=== PATIENT | male | born 1960 | race Two or more races ===

== ENCOUNTER 2020-10-07 19:02 | Emergency (ER) | payer SELFPAY ==
[~2020-10-07] VITALS: Ht 157.5 cm; Wt 83.9 kg
[2020-10-07 19:02] VITALS: BP 128/74
[2020-10-07] MEDS ORDERED: IBUPROFEN 800 MG TAB PO ONE (21:45)
== END 2020-10-07 21:59 | disposition home or self-care (01) ==
LOC: ER 19:05
DX: S96.912A Strain of unspecified muscle and tendon at ankle and foot level, left foot, initial encounter (principal); M51.9 Unspecified thoracic, thoracolumbar and lumbosacral intervertebral disc disorder; W01.0XXA Fall on same level from slipping, tripping and stumbling without subsequent striking against object, initial encounter; Y93.89 Activity, other specified; Y92.89 Other specified places as the place of occurrence of the external cause; Y99.8 Other external cause status
CPT/HCPCS: 72131; 73060; 73562; 73600

== ENCOUNTER 2023-10-24 16:43 | Inpatient (IN) | payer MEDICAID ==
[~2023-10-24] VITALS: Ht 165.1 cm; Wt 82.9 kg
[2023-10-24 17:21] LABS: Basophils # (auto) 0.1 10 ^3/uL (0-0.2); Basophils % (auto) 0.8 % (0.0-2.0); Eosinophils # (auto) 0.1 10 ^3/uL (0-0.8); Eosinophils % (auto) 1.4 % (0.0-7.0); Hematocrit 44.1 % (41.0-53.0); Hemoglobin 15.2 g/dL (13.5-17.5); Lymphocytes # (auto) 1.4 10 ^3/uL (0.4-5.4); Lymphocytes % (auto) 14.7 % (10.0-50.0); Mean Corpuscular Hemoglobin 30.8 pg (28.0-32.0); Mean Corpuscular Hgb Conc. 34.4 g/dL (32.0-36.0); Mean Corpuscular Volume 89.7 fL (80.0-100.0); Monocytes # (auto) 0.9 10 ^3/uL (0-1.3); Monocytes % (auto) 9.1 % (0.0-12.0); Neutrophils # (auto) 6.9 10 ^3/uL (1.6-8.6); Nucleated Red Blood Cells % 0.1 %; Red Blood Cells 4.92 10^6/uL (4.5-5.90); Red Cell Distribution Width 13.5 % (11.8-14.3); White Blood Cell 9.4 10^3/uL (4.4-10.8)
[2023-10-24 17:34] LABS: Alanine Aminotransferase 42 U/L (7-40); Alkaline Phosphatase 134 U/L (46-116); Anion Gap 8 (5-15); BUN/Creatinine Ratio 10.6 (10.0-20.0); Blood Urea Nitrogen 14 mg/dL (9-23); Calcium 10.2 mg/dL (8.7-10.4); Carbon Dioxide 26 mmol/L (20-30); Chloride 106 mmol/L (98-107); Glucose 102 mg/dL (74-106); Lipase 45 U/L (12-53); Potassium 3.6 mmol/L (3.5-5.1); Sodium 140 mmol/L (136-145)
[2023-10-24 17:35] LABS: Albumin 4.7 g/dL (3.2-4.8); Aspartate Aminotransferase 19 U/L (13-40); Bilirubin, Total 0.7 mg/dL (0.2-1.0)
[2023-10-24] MEDS: PANTOPRAZOLE 40 MG/10 ML VIAL INJ IV ONE (18:34)
[2023-10-24] MEDS: MORPHINE SULFATE 4 MG/ML SYR/VIAL IV ONE (18:35)
[2023-10-24] MEDS: ONDANSETRON HCL 4 MG/2 ML VIAL IV ONE (18:35)
[2023-10-24] MEDS: SODIUM CHLORIDE 0.9% 1,000 ML IVB ONE (18:35)
[2023-10-24 18:51] VITALS: PULSE 58; RESP 13; O2SAT 98
[2023-10-24 19:19] LABS: Urine Bacteria None Seen /hpf (None Seen)
[2023-10-24 19:28] LABS: Urine Blood TRACE /uL (Negative); Urine Clarity Clear (Clear); Urine Color Light-Yellow (Yellow); Urine Protein, UAD Negative (Negative); Urine Specific Gravity 1.015 (1.001-1.035); Urine Urobilinogen Normal (Negative); Urine WBC 1 /hpf (0 - 3)
[2023-10-24 19:30] VITALS: PULSE 61; RESP 15; O2SAT 100
[2023-10-24] MEDS ORDERED: ACETAMINOPHEN 325 MG TAB PO PRN (19:45)
[2023-10-24] MEDS: TAMSULOSIN HYDROCHLORIDE 0.4 MG CAP PO SCH (20:46)
[2023-10-25] MEDS: HYDROcodone-ACET 5/325MG TAB PO PRN (04:01)
[2023-10-25 04:47] LABS: Chloride 109 mmol/L (98-107); Potassium 3.7 mmol/L (3.5-5.1); Sodium 141 mmol/L (136-145)
[2023-10-25 04:48] LABS: Anion Gap 4 (5-15); Calcium 9.6 mg/dL (8.7-10.4); Carbon Dioxide 28 mmol/L (20-30)
[2023-10-25 04:53] LABS: BUN/Creatinine Ratio 9.9 (10.0-20.0); Blood Urea Nitrogen 10 mg/dL (9-23); Glucose 104 mg/dL (74-106)
[2023-10-25 07:41] VITALS: PULSE 52; RESP 16; O2SAT 98
[2023-10-25] MEDS: ENOXAPARIN SOD 40 MG/0.4 ML SYRINGE SC SCH (09:26)
[2023-10-25] MEDS: PANTOPRAZOLE 40 MG/10 ML VIAL INJ IV SCH (09:26)
[2023-10-25] MEDS: ONDANSETRON HCL 4 MG/2 ML VIAL IV PRN (10:23)
[2023-10-25] MEDS: MORPHINE SULFATE INJ 2 MG/ml SYRG IV PRN (10:23)
[2023-10-25 12:24] VITALS: BP 113/65; PULSE 55; RESP 12; TEMP 98; O2SAT 95
[2023-10-25] MEDS: MANNITOL 20% SOLN 100 gm/500ml 300 ML IV ONE (13:15)
[2023-10-25] MEDS: SODIUM CHLORIDE 0.9% 1,000 ML IV SCH (13:16)
[2023-10-25 13:33] LABS: Hepatitis B Surface Antigen Negative (Negative)
[2023-10-25 13:54] LABS: Hepatitis C Antibody Negative (Negative)
[2023-10-25 15:29] VITALS: BP 133/62; PULSE 57; TEMP 98.1; O2SAT 96
[2023-10-25 17:00] VITALS: BP 139/70; PULSE 87; RESP 16; TEMP 98.8; O2SAT 94
[2023-10-25 20:00] VITALS: BP 128/69; PULSE 74; RESP 18; TEMP 37.1
[2023-10-25 22:00] VITALS: BP 129/69; PULSE 129; RESP 69; TEMP 97.9; O2SAT 95
[2023-10-26] VITALS (7 sets, daily range): BP systolic 121–146; BP diastolic 70–77; PULSE 56–71; RESP 16–19; TEMP 97.4–98.9; O2SAT 93–99
[2023-10-26 06:44] LABS: Basophils # (auto) 0 10 ^3/uL (0-0.2); Basophils % (auto) 0.3 % (0.0-2.0); Eosinophils # (auto) 0.1 10 ^3/uL (0-0.8); Eosinophils % (auto) 1.3 % (0.0-7.0); Hemoglobin 13.4 g/dL (13.5-17.5); Lymphocytes # (auto) 1.6 10 ^3/uL (0.4-5.4); Lymphocytes % (auto) 19.3 % (10.0-50.0); Mean Corpuscular Hemoglobin 30.9 pg (28.0-32.0); Mean Corpuscular Hgb Conc. 34.3 g/dL (32.0-36.0); Monocytes # (auto) 0.9 10 ^3/uL (0-1.3); Monocytes % (auto) 11.2 % (0.0-12.0); Neutrophils # (auto) 5.7 10 ^3/uL (1.6-8.6); Neutrophils % (auto) 67.9 % (37.0-80.0); Nucleated Red Blood Cells % 0.1 %; Red Blood Cells 4.33 10^6/uL (4.5-5.90); Red Cell Distribution Width 13.3 % (11.8-14.3); White Blood Cell 8.4 10^3/uL (4.4-10.8)
[2023-10-26 07:04] LABS: BUN/Creatinine Ratio 8.7 (10.0-20.0); Blood Urea Nitrogen 9 mg/dL (9-23); Glucose 94 mg/dL (74-106)
[2023-10-26 07:12] LABS: Anion Gap 8 (5-15); Carbon Dioxide 25 mmol/L (20-30); Chloride 107 mmol/L (98-107); Potassium 3.5 mmol/L (3.5-5.1); Sodium 140 mmol/L (136-145)
[2023-10-26 07:13] LABS: Calcium 9.4 mg/dL (8.7-10.4)
[2023-10-26] MEDS: KETOROLAC TROMETH 30 MG/ML 1ML VIAL IV ONE (16:28)
[2023-10-26] MEDS: MANNITOL FTV 25% 12.5 GM/50 ML 50 ML IV ONE (17:33)
[2023-10-26] MEDS: LACTULOSE 20Gm/30ML SOLN PO SCH (21:57)
[2023-10-27] VITALS (7 sets, daily range): BP systolic 106–146; BP diastolic 59–84; PULSE 58–66; RESP 16–18; TEMP 97.9–98.8; O2SAT 94–98
[2023-10-27 07:40] LABS: Basophils # (auto) 0 10 ^3/uL (0-0.2); Basophils % (auto) 0.4 % (0.0-2.0); Eosinophils # (auto) 0.1 10 ^3/uL (0-0.8); Eosinophils % (auto) 1.6 % (0.0-7.0); Hematocrit 38.5 % (41.0-53.0); Hemoglobin 13.2 g/dL (13.5-17.5); Lymphocytes # (auto) 1.5 10 ^3/uL (0.4-5.4); Lymphocytes % (auto) 19.4 % (10.0-50.0); Mean Corpuscular Hemoglobin 31.2 pg (28.0-32.0); Mean Corpuscular Hgb Conc. 34.4 g/dL (32.0-36.0); Mean Corpuscular Volume 90.7 fL (80.0-100.0); Monocytes # (auto) 0.9 10 ^3/uL (0-1.3); Neutrophils # (auto) 5.3 10 ^3/uL (1.6-8.6); Neutrophils % (auto) 66.6 % (37.0-80.0); Red Blood Cells 4.24 10^6/uL (4.5-5.90); Red Cell Distribution Width 13.1 % (11.8-14.3); White Blood Cell 7.9 10^3/uL (4.4-10.8)
[2023-10-27 07:45] LABS: Anion Gap 8 (5-15); Carbon Dioxide 23 mmol/L (20-30); Chloride 107 mmol/L (98-107); Potassium 3.3 mmol/L (3.5-5.1); Sodium 138 mmol/L (136-145)
[2023-10-27 07:51] LABS: BUN/Creatinine Ratio 9.1 (10.0-20.0); Blood Urea Nitrogen 9 mg/dL (9-23); Glucose 80 mg/dL (74-106)
[2023-10-27] MEDS: KETOROLAC TROMETH 30 MG/ML 1ML VIAL IV PRN (10:34)
[2023-10-27] MEDS ORDERED: TAMS-35 PO (14:46)
[2023-10-27] MEDS ORDERED: IBUP-1454 PO (14:46)
== END 2023-10-27 16:55 | disposition home or self-care (01) | DRG 465 ==
LOC: ER 16:43 → OVERFLOW 20:04 → EAST 10-25 11:23 → CENTRAL 10-25 16:04
PROVIDERS: ADMIT Nurse Practitioner Family; ATTEND Hospitalist
DX: N13.2 Hydronephrosis with renal and ureteral calculous obstruction (principal); N17.9 Acute kidney failure, unspecified; K59.00 Constipation, unspecified; Z79.899 Other long term (current) drug therapy; M19.90 Unspecified osteoarthritis, unspecified site
CPT/HCPCS: 36415; 74176; 76705; 76775; 80048; 80053; 81001; 83605; 83690; 85025; 86803; 87340; C9113; G0378; J1885; J2405